=== PATIENT | male | born 1945 | race Caucasian/White ===

== ENCOUNTER 2019-01-30 15:15 | Emergency (ER) | payer MEDICARE ==
[~2019-01-30 15:15] MED LIST: ASPI-555 PO; DICL50TA7 PO; FURO20TA4 PO; LISI10TA7 PO; METF-444 PO; OMEP20TA25 PO; PROPAFENONE PO; TADA5TAB PO; WARF5TAB8 PO; WARF7.5T6 PO
[2019-01-30 16:14] LABS: BASOPHILS % (AUTO) 0.7 % (0.0-5.0); EOSINOPHILS % (AUTO) 1.3 % (0.0-8.0); HEMATOCRIT 29.4 % (42-54); LYMPHOCYTES % (AUTO) 15.7 % (21.0-51.0); MEAN CORPUSCULAR HEMOGLOBIN 24.1 pg (27.0-33.0); MEAN CORPUSCULAR VOLUME 75.1 fL (79-99); MONOCYTES % (AUTO) 8.3 % (3.0-13.0); PLATELET COUNT (AUTO) 139 K/uL (130-400); RED BLOOD CELL COUNT(AUTO) 3.92 MIL/uL (4.50-6.20); RED CELL DISTRIBUTION WIDTH 16.4 % (11.0-15.5); WHITE BLOOD COUNT (AUTO) 5.8 K/uL (4.8-10.8)
[2019-01-30 16:26] LABS: CREATININE 1.2 mg/dL (0.5-1.5); POTASSIUM 4.1 mmol/L (3.5-5.1)
[2019-01-30 16:30] LABS: ALBUMIN 4.1 g/dL (3.5-5.0); BILIRUBIN,TOTAL 1.4 mg/dL (0.2-1.0); TOTAL PROTEIN, SERUM 7.4 g/dL (6.0-8.3)
[2019-01-30 16:49] LABS: INR 1.02 (0.85-1.15); PARTIAL THROMBOPLASTIN TIME 29.4 SEC (26.3-35.5); PROTHROMBIN TIME 10.7 SEC (9.6-11.6)
[2019-01-30 16:55] LABS: B-TYPE NATRIURETIC PEPTIDE 170 pg/mL (0-100)
[2019-01-30] MEDS ORDERED: SUCRALFATE 1 GM TABLET ONE (17:02)
[2019-01-30] MEDS ORDERED: PANTOPRAZOLE 40 MG/VIAL IVP ONE (18:45)
== END 2019-01-30 21:47 | disposition home or self-care (01) ==
LOC: EDH 15:15
DX: K80.20 Calculus of gallbladder without cholecystitis without obstruction (principal); E11.9 Type 2 diabetes mellitus without complications; E78.5 Hyperlipidemia, unspecified; I48.91 Unspecified atrial fibrillation; I25.810 Atherosclerosis of coronary artery bypass graft(s) without angina pectoris; Z95.1 Presence of aortocoronary bypass graft; Z79.899 Other long term (current) drug therapy; Z95.4 Presence of other heart-valve replacement; Z72.0 Tobacco use
CPT/HCPCS: 36415; 71045; 74176; 80053; 82270; 82550; 83690; 83880; 84484 ×2; 85025; 85610; 85730; 93005 ×2; 96374; 99285; C9113